=== PATIENT | female | born 1955 | race Caucasian/White ===

== ENCOUNTER 2022-06-16 15:23 | Inpatient (IN) ==
[2022-06-16] MEDS ORDERED: Senna TAB 8.6 mg TAB PO PRN (19:39)
[2022-06-16] MEDS ORDERED: Saline NASAL SPRAY 0.65% BTL BOTH NARES PRN (21:00)
[2022-06-16] MEDS: Ondansetron ODT 4 mg TAB 4 MG TAB PO PRN (21:39)
[2022-06-16 22:41] LABS: Urine Appearance Cloudy; Urine Bilirubin Negative (Negative); Urine Blood 1+ (Negative); Urine Color Yellow; Urine Glucose Negative (Negative); Urine Ketones Negative (Negative); Urine Nitrite Negative (Negative); Urine Protein Negative (Negative); Urine Specific Gravity 1.012 (1.002-1.030); Urine Urobilinogen Negative (Negative)
[2022-06-16 22:50] LABS: Urine Bacteria 1+ (Absent); Urine Red Blood Cell 2+(6-10/hpf) (Absent); Urine White Blood Cell 3+(>20/hpf) (Absent)
[2022-06-17] MEDS: Lidocaine PATCH 5% PATCH TRANSDERM SCH (07:31)
[2022-06-18] MEDS: Lidocaine PATCH 5% PATCH TRANSDERM SCH (09:32)
[2022-06-18] MEDS: Ondansetron ODT 4 mg TAB 4 MG TAB PO PRN (10:55)
[2022-06-18] MEDS: Sodium Phosphate ADULT ENEMA 133 ML BTL PR SCH (21:30)
[2022-06-19] MEDS: Lidocaine PATCH 5% PATCH TRANSDERM SCH (09:03)
[2022-06-19] MEDS ORDERED: Cefepime 1 GM in Dextrose 1 GM/50 ML BAG IV SCH (19:30)
[2022-06-19] MEDS: Sodium Phosphate ADULT ENEMA 133 ML BTL PR SCH (21:27)
[2022-06-19] MEDS: Cefepime 1 GM in Dextrose 1 GM/50 ML BAG IV SCH (23:54)
[2022-06-20] MEDS: Dextran 70/Hypromellose Tears Eye Drops 15 ml BTL (for Artificials Tears) RIGHT EYE PRN ×3 (00:16→22:22)
[2022-06-20] MEDS: Lidocaine PATCH 5% PATCH TRANSDERM SCH (09:42)
[2022-06-20] MEDS: Cefepime 1 GM in Dextrose 1 GM/50 ML BAG IV SCH (12:56)
[2022-06-20] MEDS: Sodium Phosphate ADULT ENEMA 133 ML BTL PR SCH (22:30)
[2022-06-21] MEDS: Lidocaine PATCH 5% PATCH TRANSDERM SCH (08:40)
[2022-06-21] MEDS: Dextran 70/Hypromellose Tears Eye Drops 15 ml BTL (for Artificials Tears) RIGHT EYE PRN ×2 (13:21→21:38)
[2022-06-21] MEDS: Ondansetron ODT 4 mg TAB 4 MG TAB PO PRN (18:09)
[2022-06-21 22:27] LABS: High Sensitivity Troponin 1 Hr 5 pg/mL (<15)
[2022-06-21] MEDS: Sodium Phosphate ADULT ENEMA 133 ML BTL PR SCH (23:10)
[2022-06-22] MEDS: Lidocaine PATCH 5% PATCH TRANSDERM SCH (10:28)
[2022-06-22] MEDS ORDERED: Dextran 70/Hypromellose Tears Eye Drops 15 ml BTL (for Artificials Tears) BOTH EYES PRN (11:10)
[2022-06-22] MEDS: Ondansetron ODT 4 mg TAB 4 MG TAB PO PRN (13:25)
[2022-06-22] MEDS: Sodium Phosphate ADULT ENEMA 133 ML BTL PR SCH (21:05)
[2022-06-23] MEDS: Lidocaine PATCH 5% PATCH TRANSDERM SCH (09:08)
[2022-06-23 09:57] VITALS: BP 103/66
[2022-06-23 12:56] LABS: Rapid COVID-19 Molecular Undetected (Undetected)
== END 2022-06-23 14:00 | DRG 52 ==
LOC: ED 15:23 → SUATTDRO 19:33 → EDHOLD 19:33 → MED 06-19 15:29
PROVIDERS: ADMIT Student in an Organized Health Care Education/Training Program; ATTEND Internal Medicine